=== PATIENT | male | born 1985 | race Caucasian/White ===

== ENCOUNTER 2022-06-05 07:57 | Outpatient (CLI) | payer OTHER | END 2022-06-05 07:58 | disposition home or self-care (01) | LOC: SCSRAD 07:57 | PROVIDERS: ATTEND Neurological Surgery | DX: M54.2 Cervicalgia (principal); Z98.1 Arthrodesis status | CPT/HCPCS: 72040 ==

== ENCOUNTER 2022-08-12 15:21 | Outpatient (CLI) | payer OTHER | END 2022-08-12 15:22 | disposition home or self-care (01) | LOC: SCSRAD 15:21 | PROVIDERS: ATTEND Neurological Surgery | DX: M54.2 Cervicalgia (principal) | CPT/HCPCS: 72040 ==

== ENCOUNTER 2022-12-30 15:01 | Outpatient (CLI) | payer OTHER | END 2022-12-30 15:02 | disposition home or self-care (01) | LOC: SCSRAD 15:01 | PROVIDERS: ATTEND Neurological Surgery | DX: M54.50 Low back pain, unspecified (principal); M47.816 Spondylosis without myelopathy or radiculopathy, lumbar region; M46.06 Spinal enthesopathy, lumbar region; M89.38 Hypertrophy of bone, other site; Z98.890 Other specified postprocedural states | CPT/HCPCS: 72100 ==